=== PATIENT | female | born 1975 ===

== ENCOUNTER 2025-06-12 11:15 | Inpatient (IN) | payer OTHER ==
[~2025-06-12] VITALS: Ht 160 cm; Wt 99.8 kg
[2025-07-10 08:55] LABS: BASO % 0.2 % (0.1-1.2); EOS # 0.16 (0.04-0.54); EOS % 2.5 % (0.7-7.0); LYMPH # 1.55 (1.18-3.74); LYMPH % 23.8 % (19.3-53.1); MEAN PLATELET VOLUME 9.50 fl (9.4-12.4); MONO # 0.46 (0.24-0.82); MONO % 7.1 % (4.7-12.5); NEUT # 4.30 (1.56-6.13); NEUT % 65.8 % (34.0-71.1); RED CELL DISTRIBUTION WIDTH 13.0 % (11.6-14.4)
[2025-07-10 08:56] LABS: URINE APPEARANCE Clear; URINE BILIRRUBIN Negative (NEGATIVE); URINE BLOOD Large; URINE COLOR Yellow; URINE GLUCOSE Negative (NEGATIVE); URINE KETONE Negative (NEGATIVE); URINE LEUKOCYTE Negative; URINE NITRATE Negative; URINE PROTEIN Negative (NEGATIVE); URINE UROBILINOGEN 0.2 E.U./dl
[2025-07-10 09:00] LABS: URINE BACTERIA 36.5 uL (0.0-1933); URINE EPITHELIAL CELLS 8.7 uL (0.0-38.8); URINE RBC 829.1 uL (0.0-20.8); URINE WBC 3.2 uL (0.0-23.2)
[2025-07-10 09:03] LABS: URINE CAST 0.00 uL (0.0-1.40)
[2025-07-10 09:11] VITALS: BP 107/66
[2025-07-10 09:15] VITALS: BP 117/79
[2025-07-10 09:16] LABS: INR 1.0
[2025-07-10] MEDS ORDERED: EZALLOR SPRINKL20 MG PO (09:16)
[2025-07-10] MEDS ORDERED: SYNTHROID50 MCG PO (09:16)
[2025-07-10] MEDS ORDERED: ECOTRIN81 MG PO (09:16)
[2025-07-10] MEDS ORDERED: FEOSOL325 MG PO (09:17)
[2025-07-10] MEDS ORDERED: PROTONIX20 MG PO (09:17)
[2025-07-10] MEDS ORDERED: FOLIC ACID0.8 M1 (09:17)
[2025-07-10] MEDS ORDERED: RISPERDAL1 MG PO (09:18)
[2025-07-10] MEDS ORDERED: CLONAZEPAM1 MG PO (09:18)
[2025-07-10] MEDS ORDERED: BUPROPION XL450 MG (09:18)
[2025-07-10] MEDS ORDERED: MIRTAZAPINE30 M1 PO (09:19)
[2025-07-10] MEDS ORDERED: ALLERGY RELIE15.8 ML (09:19)
[2025-07-10] MEDS ORDERED: ORAPRED ODT15 MG PO (09:19)
[2025-07-10] MEDS ORDERED: [UNRECOGNIZED DRUG - OTHER] (09:20)
[2025-07-10] MEDS ORDERED: ATROVENT HFA12.9 GM (09:20)
[2025-07-10] MEDS ORDERED: NEURONTIN600 M1 PO (09:21)
[2025-07-10] MEDS ORDERED: VITAMIN D (09:21)
[2025-07-10] MEDS ORDERED: BACLOFEN20 MG PO (09:21)
[2025-07-10 09:52] LABS: ALT/SGPT 37.0 U/L (12-78); AST/SGOT 20.0 U/L (15-37); BILIRUBIN TOTAL 0.36 mg/dL (0.3-1.2); BUN CREA RATIO 27.0 (7.0-25.0); CREATININE SERUM 0.6 mg/dL (0.55-1.02); GFR 105.82; GLOBULINA 3.5 G/DL (2.4-3.5); GLUCOSE FASTING 96.0 mg/dL (65-100); OSMOLALITY SERUM 280.0 MOSM/KG (275-295)
[2025-07-18] MEDS ORDERED: POVIDONE-IODINE 118 ML BOTT TOP ONE (09:18)
[2025-07-18] MEDS ORDERED: CEFOXITIN SODIUM 2,000 MG VIAL IV ONE (09:19)
[2025-07-18] MEDS ORDERED: METRONIDAZOLE/SODIUM CHLORIDE 500 MG/100 ML PIGGYBACK IV ONE (09:19)
[2025-07-18] MEDS ORDERED: HEMOSTATIC MATRIX 1 KIT KIT TOP ONE (12:15)
[2025-07-18] MEDS ORDERED: SURGIFLO APPLICATOR 1 EACH APPL TOP ONE (12:15)
[2025-07-18] MEDS ORDERED: SUGAMMADEX SODIUM 200 MG/2 ML VIAL IV ONE (12:22)
[2025-07-18] MEDS ORDERED: KETOROLAC TROMETHAMINE 30 MG VIAL IV PRN (13:45)
[2025-07-18] MEDS ORDERED: MORPHINE SULFATE 4 MG/ML CARTRIDGE IV PRN (13:45)
[2025-07-18] MEDS ORDERED: ONDANSETRON HCL 2 MG/ML VIAL IV PRN (13:45)
[2025-07-18] MEDS ORDERED: RINGERS SOLUTION,LACTATED 1,000 ML IV SCH (13:45)
[2025-07-18] MEDS ORDERED: LEVALBUTEROL HCL 0.63 MG/3 ML SOLUTION IH SCH (14:00)
[2025-07-18 17:26] LABS: BASO % 0.1 % (0.1-1.2); EOS # 0.02 (0.04-0.54); EOS % 0.1 % (0.7-7.0); LYMPH # 1.19 (1.18-3.74); LYMPH % 7.8 % (19.3-53.1); MEAN PLATELET VOLUME 9.70 fl (9.4-12.4); MONO # 0.79 (0.24-0.82); MONO % 5.2 % (4.7-12.5); NEUT # 13.24 (1.56-6.13); NEUT % 86.4 % (34.0-71.1); RED CELL DISTRIBUTION WIDTH 13.0 % (11.6-14.4)
[2025-07-18] MEDS ORDERED: SIMETHICONE 125 MG CAPSULE PO SCH (18:00)
[2025-07-18 18:43] VITALS: BP 103/67
[2025-07-18 18:45] VITALS: BP 107/66
[2025-07-18] MEDS ORDERED: FAMOTIDINE/PF 20 MG/2 ML VIAL IV SCH (21:00)
[2025-07-19 01:26] VITALS: BP 90/56
[2025-07-19] MEDS ORDERED: LEVOTHYROXINE SODIUM 50 MCG TABLET PO SCH (06:00)
[2025-07-19] MEDS ORDERED: ACETAMINOPHEN WITH CODEINE 1 UDTAB TABLET PO PRN (06:00)
[2025-07-19 08:00] VITALS: BP 126/79
[2025-07-19] MEDS ORDERED: NAPROXEN 500 MG TABLET PO PRN (09:00)
[2025-07-19] MEDS ORDERED: ROSUVASTATIN CALCIUM 20 MG TABLET PO SCH (09:00)
[2025-07-19] MEDS ORDERED: BUPROPION HCL 150 MG TABLET.SA PO SCH (09:00)
[2025-07-19] MEDS ORDERED: NAPROXEN500 MG PO (09:05)
[2025-07-19] MEDS ORDERED: ACETAMINOPHEN-1 EAC2 PO (09:05)
== END 2025-07-19 11:59 | disposition home or self-care (01) | DRG 743 ==
LOC: OB/GYN 07-18 05:41 → O/R 07-18 05:41 → SURH 07-18 07:00 → OB/GYN 07-18 13:48
PROVIDERS: ADMIT Obstetrics & Gynecology; ATTEND Obstetrics & Gynecology
PROC: 0UT7FZZ Resection of Bilateral Fallopian Tubes, Via Natural or Artificial Opening With Percutaneous Endoscopic Assistance (ICD-10-PCS; 2025-07-18)
PROC: 0TJB8ZZ Inspection of Bladder, Via Natural or Artificial Opening Endoscopic (ICD-10-PCS; 2025-07-18)
PROC: 0UT9FZZ Resection of Uterus, Via Natural or Artificial Opening With Percutaneous Endoscopic Assistance (ICD-10-PCS; principal; 2025-07-18 07:00)
DX: D25.1 Intramural leiomyoma of uterus (principal); N92.1 Excessive and frequent menstruation with irregular cycle; R10.20 Pelvic and perineal pain unspecified side; N81.11 Cystocele, midline; N80.03 Adenomyosis of the uterus